=== PATIENT | male | born 1950 | race Caucasian/White ===

== ENCOUNTER 2019-02-03 07:23 | Day surgery (SDC) | payer MEDICARE ==
[~2019-02-03 07:23] MED LIST: Buffered Lidocaine 1% SYRIN* 1 ML/SYRINGE INTRADERM ONE
[2019-02-03] MEDS ORDERED: Midazolam* 1 MG/ML 2 ML VIAL (2 MG) ONE (09:11)
[2019-02-03 10:24] VITALS: BP 116/72
--- NOTE | 2019-02-03 12:05 | OP ---
DATE OF OPERATION: 02/03/19 [facility] DATE OF : 48 SURGEON: Kenton Lopez MD PREOPERATIVE DIAGNOSIS: Cataract, left eye. POSTOPERATIVE DIAGNOSIS: Cataract, left eye. OPERATIVE PROCEDURE: Extracapsular cataract extraction with intraocular lens implant, left eye. DESCRIPTION OF PROCEDURE: The patient was brought to the operating room after being given 1/2% Alcaine with epinephrine drops in the preoperative area. The eye was prepped and draped in the usual sterile fashion. Sterile drape and eyelid speculum were placed. Again, topical 1/2% Alcaine with epinephrine was given. A paracentesis incision was made at the 3 o'clock position with the No.75 blade. Clear cornea incision 2.2 x 2.2-mm was created at the 6 o'clock position starting at the anterior limbus using the 2.2-mm keratome. The anterior chamber was irrigated with 0.4 mL of 1% non-preservative intracameral lidocaine and filled with DisCoVisc. A capsulorrhexis was completed using the cystotome and the Utrata forceps. Hydrodissection was performed with balanced salt solution. The lens nucleus was removed with the Phacoemulsification handpiece without incident. Cortex was removed with the irrigation-aspiration handpiece. The capsular bag was re-inflated using DisCoVisc and an SN60WF 21 implant was inserted with the shooter. The irrigation-aspiration handpiece was used to remove all residual DisCoVisc. The eye was refilled with balanced salt solution and the wound checked and found to be watertight. Topical Maxitrol drops were given. [id number]/[facility] #: [id number] [facility]
[2019-02-03] MEDS ORDERED: Lidocaine 1% MPF ** 5 ML VIAL ONE (13:47)
[2019-02-03] MEDS ORDERED: Povidone Iodine 5% OPTH* 30 ML BTL ONE (13:47)
[2019-02-03] MEDS ORDERED: Ketorolac 0.5% OPHTH (NF) 0.5 % 5 ML BTL ONE (13:47)
[2019-02-03] MEDS ORDERED: Lidocaine 2% w/ EPI 1:200,000* 20 ML SDV VIAL ONE (13:47)
[2019-02-03] MEDS ORDERED: Neomycin/Polymy/Dex OPTH.SUSP* MAXITROL 0.1% 5 ML ONE (13:47)
[2019-02-03] MEDS ORDERED: Cyclopentolate 1% OPTH.SOL* 2 ML BTL ONE (13:47)
[2019-02-03] MEDS ORDERED: Proparacaine 0.5% OPHTH.SOL* 15 ML BTL ONE (13:47)
[2019-02-03] MEDS ORDERED: acetaZOLAMIDE TAB* 250 MG ONE (13:47)
[2019-02-03] MEDS ORDERED: Phenylephrine OPHTH SOL 2.5%* 2 ML ONE (13:47)
== END 2019-02-03 09:58 | disposition home or self-care (01) ==
LOC: OREAST 07:23
PROVIDERS: ATTEND Specialist
DX: H25.812 Combined forms of age-related cataract, left eye (principal); E11.9 Type 2 diabetes mellitus without complications; Z79.84 Long term (current) use of oral hypoglycemic drugs; Z79.4 Long term (current) use of insulin; N18.3 Chronic kidney disease, stage 3 (moderate); K21.9 Gastro-esophageal reflux disease without esophagitis; J44.9 Chronic obstructive pulmonary disease, unspecified; M19.90 Unspecified osteoarthritis, unspecified site; F17.210 Nicotine dependence, cigarettes, uncomplicated
CPT/HCPCS: A9270-GY; J2250; V2632

== ENCOUNTER 2019-02-10 06:54 | Day surgery (SDC) | payer MEDICARE ==
[2019-02-10] MEDS ORDERED: Midazolam* 1 MG/ML 2 ML VIAL (2 MG) ONE (08:26)
[2019-02-10 09:33] VITALS: BP 106/50
--- NOTE | 2019-02-10 11:16 | OP ---
OPERATIVE NOTE: DATE OF OPERATION: 02/10/19 DATE OF : 48 SURGEON: Kenton Lopez M.D. PREOPERATIVE DIAGNOSIS: Cataract, right eye. POSTOPERATIVE DIAGNOSIS: Cataract, right eye. OPERATIVE PROCEDURE: Extracapsular cataract extraction with intraocular lens implant right eye. PROCEDURE: The patient was brought to the operating room after being given 1/2% Alcaine with epineph rine drops in the preoperative area. The eye was prepped and draped in the usual sterile fashion. S terile drape and eyelid speculum were placed. Again, topical 1/2% Alcaine with epinephrine was given . A paracentesis incision was made at the 9 o'clock position with the No. 75 blade. Clear cornea in cision 2.2 x 2.2-mm was created at the 12 o'clock position starting at the anterior limbus using the 2.2-mm keratome. The anterior chamber was irrigated with 0.4 mL of 1% non-preservative intracameral lidocaine and filled with DisCoVisc. A capsulorrhexis was completed using the cystotome and the Utra ta forceps. Hydrodissection was performed with balanced salt solution. The lens nucleus was removed with the Phacoemulsification handpiece without incident. Cortex was removed with the irrigation-aspi ration handpiece. The capsular bag was re-inflated using DisCoVisc and an SN60WF 20.5 Implant was in serted with the shooter. The pupil was very small, so a Malyugin ring was used to dilate the pupil p rior to capsulorrhexis, removed after insertion of the lens. Irrigation-aspiration handpiece was use d to remove all residual DisCoVisc. The eye was refilled with balanced salt solution and the wound c hecked and found to be watertight. Topical Maxitrol drops were given. INDICATION FOR COMPLEX CATARACT SURGERY: Pupil abnormalities requiring pupil dilation device. [id number]/[facility] #: [id number]
[2019-02-10] MEDS ORDERED: Lidocaine 1% MPF ** 5 ML VIAL ONE (14:51)
[2019-02-10] MEDS ORDERED: acetaZOLAMIDE TAB* 250 MG ONE (14:51)
[2019-02-10] MEDS ORDERED: Ketorolac 0.5% OPHTH (NF) 0.5 % 5 ML BTL ONE (14:51)
[2019-02-10] MEDS ORDERED: Povidone Iodine 5% OPTH* 30 ML BTL ONE (14:51)
[2019-02-10] MEDS ORDERED: Cyclopentolate 1% OPTH.SOL* 2 ML BTL ONE (14:51)
[2019-02-10] MEDS ORDERED: Lidocaine 2% w/ EPI 1:200,000* 20 ML SDV VIAL ONE (14:51)
[2019-02-10] MEDS ORDERED: Proparacaine 0.5% OPHTH.SOL* 15 ML BTL ONE (14:51)
[2019-02-10] MEDS ORDERED: Neomycin/Polymy/Dex OPTH.SUSP* MAXITROL 0.1% 5 ML ONE (14:51)
[2019-02-10] MEDS ORDERED: Phenylephrine OPHTH SOL 2.5%* 2 ML ONE (14:51)
== END 2019-02-10 09:23 | disposition home or self-care (01) ==
LOC: OREAST 06:54
PROVIDERS: ATTEND Specialist
DX: H25.811 Combined forms of age-related cataract, right eye (principal); E11.22 Type 2 diabetes mellitus with diabetic chronic kidney disease; N18.3 Chronic kidney disease, stage 3 (moderate); F17.290 Nicotine dependence, other tobacco product, uncomplicated; J44.9 Chronic obstructive pulmonary disease, unspecified; K21.9 Gastro-esophageal reflux disease without esophagitis; Z79.4 Long term (current) use of insulin; Z79.84 Long term (current) use of oral hypoglycemic drugs; Z96.1 Presence of intraocular lens
CPT/HCPCS: A9270-GY; J2250; V2632

== ENCOUNTER 2023-06-23 15:08 | Inpatient (IN) ==
[2023-06-23 16:22] LABS: ABS Basophils 0.1 10^3/uL (0.0-0.1); ABS Eosinophils 0.2 10^3/uL (0.0-0.5); ABS Lymphocytes 1.4 10^3/uL (1.0-4.8); ABS Monocytes 0.8 10^3/uL (0.0-1.1); ABS Neutrophils 5.3 10^3/uL (1.5-7.6); ABS Nucleated RBC 0.01 10^3/ul; Eosinophil % 2.9 %; Hematocrit 19.1 % (38-53); Hemoglobin 6.2 g/dL (13.2-16.3); Lymphocyte % 18.1 %; Mean Corpuscular Hgb Conc 32.4 g/dL (31-36); Mean Corpuscular Volume 89.4 fL (80-97); Mean Platelet Volume 7.3 fL (7.5-11.2); Nucleated Red Blood Cells % 0.1 %/100WBC (0.0-0.8); Platelet Count 236 10^3/uL (150-450); Red Blood Count 2.14 10^6/uL (4.06-5.63); Red Cell Distribution Width 16.2 % (12-17); White Blood Count 7.8 10^3/uL (3.6-10.2)
[2023-06-23 16:34] LABS: High Sens Troponin Baseline 79 pg/mL (<20)
[2023-06-23 16:50] LABS: ALT 6 U/L (7-52); AST 9 U/L (13-39); Albumin/Globulin Ratio 1.7 (1-3); Alcohol, S < 13 mg/dL (<13); Alkaline Phosphatase 36 U/L (35-149); Anion Gap 6 mmol/L (2-16); Blood Urea Nitrogen 55 mg/dL (6-24); C Reactive Protein < 1.00 mg/L (<8.01); CO2 Carbon Dioxide 21 mmol/L (22-32); Calcium 8.8 mg/dL (8.6-10.3); Chloride 107 mmol/L (101-111); Creatinine, Serum 3.03 mg/dL (0.67-1.17); Globulin 2.3 g/dL (2-4); Glucose 126 mg/dL (70-100); Magnesium 1.9 mg/dL (1.9-2.7); Potassium 5.4 mmol/L (3.5-5.0); Sodium 134 mmol/L (135-145); Total Bilirubin 0.3 mg/dL (0.2-1.0); Total Protein 6.3 g/dL (6.4-8.9); eGFR CKD-EPI 20.9 (>60)
[2023-06-23 17:36] LABS: High Sensitivity Troponin 1 Hr 83 pg/mL (<20)
[2023-06-23] MEDS ORDERED: Nicotine Lozenge mini 2 MG LOZNG.MINI MT PRN (19:52)
[2023-06-23] MEDS ORDERED: Dextrose 50% Syringe 50 ml 25 GM/50 ML SYRINGE IV PUSH PRN (19:58)
[2023-06-23 20:22] LABS: Urine Appearance Clear; Urine Bilirubin Negative (Negative); Urine Blood Negative (Negative); Urine Color Light-Yellow; Urine Glucose Trace (Negative); Urine Ketones Negative (Negative); Urine Nitrite Negative (Negative); Urine Protein Negative (Negative); Urine Specific Gravity 1.013 (1.002-1.030); Urine Urobilinogen Negative (Negative); Urine pH 5.5 (5.0-8.0)
[2023-06-23 21:14] LABS: % Iron Saturation 4 % (15-55); .Transferrin 341 mg/dL (203-362); Iron < 20 ug/dL (50-212); Phosphorus 4.4 mg/dL (2.5-5.0); Total Iron Binding Capacity 477 mcg/dL (250-450); Unsaturated Iron Binding 457 ug/dL
[2023-06-23 21:34] LABS: Ferritin 8.1 ng/mL (24-336)
[2023-06-24] MEDS ORDERED: Albuterol 2.5mg/3 ml (0.083%) NEB.SOLN INH PRN (00:16)
[2023-06-24] MEDS: Albuterol 2.5mg/3 ml (0.083%) NEB.SOLN INH ONE ×3 (00:17→06:02)
[2023-06-24 00:25] LABS: Folate 10.26 ng/mL (5.90-24.80)
[2023-06-24 00:26] LABS: Vitamin B12 206 pg/mL (180-914)
[2023-06-24 02:37] LABS: Hematocrit 23.5 % (38-53); Hemoglobin 7.9 g/dL (13.2-16.3); Mean Corpuscular Hemoglobin 29.1 pg (27-33); Mean Corpuscular Hgb Conc 33.4 g/dL (31-36); Platelet Count 186 10^3/uL (150-450); Red Blood Count 2.71 10^6/uL (4.06-5.63); Red Cell Distribution Width 15.8 % (12-17); White Blood Count 8.3 10^3/uL (3.6-10.2)
[2023-06-24 02:44] LABS: INR 1.05 (0.83-1.13)
[2023-06-24 03:11] LABS: Calcium 8.6 mg/dL (8.6-10.3); Creatinine, Serum 2.87 mg/dL (0.67-1.17); Potassium 5.1 mmol/L (3.5-5.0); eGFR CKD-EPI 22.3 (>60)
[2023-06-24 06:58] LABS: ABS Basophils 0.1 10^3/uL (0.0-0.1); ABS Eosinophils 0.2 10^3/uL (0.0-0.5); ABS Lymphocytes 1.4 10^3/uL (1.0-4.8); ABS Monocytes 0.9 10^3/uL (0.0-1.1); ABS Neutrophils 4.7 10^3/uL (1.5-7.6); ABS Nucleated RBC 0.01 10^3/ul; Hematocrit 24.1 % (38-53); Hemoglobin 8.1 g/dL (13.2-16.3); Lymphocyte % 19.1 %; Mean Corpuscular Hemoglobin 29.5 pg (27-33); Mean Corpuscular Hgb Conc 33.8 g/dL (31-36); Mean Corpuscular Volume 87.3 fL (80-97); Nucleated Red Blood Cells % 0.2 %/100WBC (0.0-0.8); Platelet Count 197 10^3/uL (150-450); Red Blood Count 2.76 10^6/uL (4.06-5.63); Red Cell Distribution Width 15.8 % (12-17); White Blood Count 7.5 10^3/uL (3.6-10.2)
[2023-06-24] MEDS ORDERED: Albuterol 2.5mg/3 ml (0.083%) NEB.SOLN INH ONE (07:00)
[2023-06-24 07:16] LABS: Calcium 8.6 mg/dL (8.6-10.3); Creatinine, Serum 2.8 mg/dL (0.67-1.17); Potassium 5.4 mmol/L (3.5-5.0)
[2023-06-24] MEDS ORDERED: Calcium Gluconate 1 GM/10 ML VIAL (in Pyxis) IV PUSH ONE (07:42)
[2023-06-24] MEDS: Nicotine PATCH 14 MG/24 HR PATCH TRANSDERM SCH (07:47)
[2023-06-24] MEDS: Nicotine GUM 2MG FRUIT FLAVOR PO PRN (07:47)
[2023-06-24] MEDS ORDERED: Simvastatin 20 mg TAB (NF) PO SCH (09:00)
[2023-06-24] MEDS: SODIUM ZIRCONIUM CYCLOSILICATE 10 GM PACKET PO SCH (09:25)
[2023-06-24] MEDS: CALCIUM GLUCONATE 1GM/50ML NS BAG IV ONE (10:49)
[2023-06-24] MEDS: Ferric Gluconate IV 250 MG in NS 0.9% 250 ml 200 ML IVPB ONE (12:03)
[2023-06-24 21:02] LABS: Creatinine, Serum 2.63 mg/dL (0.67-1.17); Potassium 5.6 mmol/L (3.5-5.0); eGFR CKD-EPI 24.7 (>60)
[2023-06-25 05:42] LABS: Hematocrit 26.7 % (38-53); Hemoglobin 8.9 g/dL (13.2-16.3); Mean Corpuscular Hemoglobin 29.1 pg (27-33); Mean Corpuscular Hgb Conc 33.4 g/dL (31-36); Mean Corpuscular Volume 87.3 fL (80-97); Mean Platelet Volume 7.3 fL (7.5-11.2); Platelet Count 233 10^3/uL (150-450); Red Blood Count 3.06 10^6/uL (4.06-5.63); Red Cell Distribution Width 15.4 % (12-17); White Blood Count 9.1 10^3/uL (3.6-10.2)
[2023-06-25 06:00] LABS: Calcium 9.2 mg/dL (8.6-10.3); Creatinine, Serum 2.64 mg/dL (0.67-1.17); Magnesium 1.9 mg/dL (1.9-2.7); Potassium 5.1 mmol/L (3.5-5.0); eGFR CKD-EPI 24.6 (>60)
[2023-06-25] MEDS: Sodium Polystyrene ORAL.SUSP 15 GM/60 ML BTL PO ONE (06:23)
[2023-06-25] MEDS: Ferric Gluconate IV 250 MG in NS 0.9% 250 ml 200 ML IVPB SCH (09:34)
[2023-06-25] MEDS: Insulin GLARGINE 100 un/ml 10 ml VIAL SUBCUT SCH (12:00)
[2023-06-25] MEDS ORDERED: Midazolam 10 mg/10 ml VIAL 1 mg/ml 10 ml VIAL (10 mg) ONE (14:17)
[2023-06-25] MEDS ORDERED: fentaNYL 100 mcg/2 ml 50 MCG/ML VIAL ONE (14:17)
[2023-06-26 05:58] LABS: Hematocrit 27.1 % (38-53); Mean Corpuscular Hgb Conc 33.1 g/dL (31-36); Mean Corpuscular Volume 87.7 fL (80-97); Mean Platelet Volume 7.2 fL (7.5-11.2); Platelet Count 232 10^3/uL (150-450); Red Blood Count 3.09 10^6/uL (4.06-5.63); Red Cell Distribution Width 15.7 % (12-17)
[2023-06-26 06:18] LABS: Albumin/Globulin Ratio 1.7 (1-3); Calcium 9.1 mg/dL (8.6-10.3); Creatinine, Serum 2.63 mg/dL (0.67-1.17); Globulin 2.3 g/dL (2-4); Potassium 4.4 mmol/L (3.5-5.0); Total Bilirubin 0.4 mg/dL (0.2-1.0); Total Protein 6.3 g/dL (6.4-8.9); eGFR CKD-EPI 24.7 (>60)
[2023-06-26] MEDS: PEG 3000 GI LAVAGE 1 GALLON PO ONE (10:10)
[2023-06-26 17:37] VITALS: BP 98/51
== END 2023-06-26 18:30 | disposition home or self-care (01) | DRG 812 ==
LOC: EDHOLD 15:08 → ED 15:08 → SUATTDRO 18:48 → MEDTELE 19:42 → MED 06-26 17:10
PROVIDERS: ADMIT Internal Medicine; ATTEND Student in an Organized Health Care Education/Training Program

== ENCOUNTER 2023-12-23 04:17 | Inpatient (IN) ==
[2023-12-23] MEDS ORDERED: Dextrose 50% Syringe 50 ml 25 GM/50 ML SYRINGE IV PUSH PRN (06:22)
[2023-12-23 06:33] LABS: ABS Basophils 0.1 10^3/uL (0.0-0.1); ABS Eosinophils 0.4 10^3/uL (0.0-0.5); ABS Lymphocytes 1.7 10^3/uL (1.0-4.8); ABS Monocytes 1.1 10^3/uL (0.0-1.1); ABS Neutrophils 8.5 10^3/uL (1.5-7.6); Eosinophil % 3.8 %; Hematocrit 26.5 % (38-53); Hemoglobin 9.2 g/dL (13.2-16.3); Lymphocyte % 14.2 %; Mean Corpuscular Hemoglobin 34.9 pg (27-33); Mean Corpuscular Hgb Conc 34.6 g/dL (31-36); Mean Corpuscular Volume 100.8 fL (80-97); Mean Platelet Volume 7.2 fL (7.5-11.2); Platelet Count 260 10^3/uL (150-450); Red Blood Count 2.63 10^6/uL (4.06-5.63); Red Cell Distribution Width 13.7 % (12-17); White Blood Count 11.7 10^3/uL (3.6-10.2)
[2023-12-23] MEDS ORDERED: NS 0.9% 1000 ml BAG 200 ML IV PRN (07:40)
[2023-12-23] MEDS ORDERED: NS 0.9% 1000 ml BAG 100 ML IV PRN (07:40)
[2023-12-23 08:00] LABS: ALT 8 U/L (7-52); AST 9 U/L (13-39); Albumin 4.2 g/dL (3.2-5.2); Albumin/Globulin Ratio 1.4 (1-3); Alkaline Phosphatase 117 U/L (35-149); Anion Gap 17 mmol/L (2-16); Blood Urea Nitrogen 120 mg/dL (6-24); CO2 Carbon Dioxide 21 mmol/L (22-32); Calcium 10.2 mg/dL (8.6-10.3); Chloride 99 mmol/L (101-111); Creatinine, Serum 9.62 mg/dL (0.67-1.17); Globulin 2.9 g/dL (2-4); Glucose 136 mg/dL (70-100); Magnesium 2.6 mg/dL (1.9-2.7); Phosphorus 5.9 mg/dL (2.5-5.0); Potassium 4.4 mmol/L (3.5-5.0); Sodium 137 mmol/L (135-145); Total Bilirubin 0.4 mg/dL (0.2-1.0); Total Protein 7.1 g/dL (6.4-8.9); eGFR CKD-EPI 5.2 (>60)
[2023-12-23] MEDS: Insulin ISOPH/REG 70/30 SUBCUT SCH (08:07)
[2023-12-23 08:17] LABS: Folate 10.96 ng/mL (5.90-24.80)
[2023-12-23 08:35] LABS: Vitamin B12 > 1450 pg/mL (180-914)
[2023-12-23] MEDS ORDERED: Clindamycin 600 MG/NS BAG(*) 600 MG/50 ML BAG ONE (11:21)
[2023-12-23] MEDS ORDERED: Heparin 2 UNITS/ML IVPREMIX 1,000 UNIT/500 ML BAG IV ONE (12:08)
[2023-12-23] MEDS ORDERED: Lidocaine 1% VIAL 10 MG/ML 30 ML VIAL ONE (12:08)
[2023-12-23 12:09] LABS: Hepatitis B Surface Antigen Nonreactive (Nonreactive)
[2023-12-23] MEDS ORDERED: Midazolam 5 mg/5 ml VIAL 1 mg/ml 5 ml VIAL (5 mg) ONE (12:17)
[2023-12-23] MEDS ORDERED: fentaNYL 100 mcg/2 ml 50 MCG/ML VIAL ONE ×2 (12:17→12:43)
[2023-12-23 13:49] LABS: Hepatitis B Surface Ab Not Immune (Immune)
[2023-12-23] MEDS: Heparin 1,000 UNIT/ML 10 ml (10,000 UNITS) CATHLAB/DIALYSIS DIALYSIS PRN (14:10)
[2023-12-23 16:41] LABS: Rheumatoid Factor < 10 IU/mL (<15)
[2023-12-23 17:26] LABS: C Reactive Protein 10.48 mg/L (<8.01)
[2023-12-23 17:39] LABS: Hepatitis C Antibody Negative (Negative)
[2023-12-23] MEDS: Clindamycin 600 MG/D5W BAG 600 MG/50 ML BAG IV ONE (19:30)
[2023-12-23 22:01] LABS: HIV 4th Generation Nonreactive (Nonreactive)
[2023-12-23] MEDS: Heparin 5000 UNITS/ML 1 mL VIAL SUBCUT SCH (22:06)
[2023-12-23 22:47] LABS: Hepatitis B Surface Antigen Nonreactive (Nonreactive)
[2023-12-24] MEDS: Nystatin TOP POWDER 15 GM BTL TOPICAL SCH (01:03)
[2023-12-24 06:25] LABS: ABS Basophils 0.1 10^3/uL (0.0-0.1); ABS Eosinophils 0.3 10^3/uL (0.0-0.5); ABS Lymphocytes 1.6 10^3/uL (1.0-4.8); ABS Monocytes 0.9 10^3/uL (0.0-1.1); ABS Neutrophils 6.7 10^3/uL (1.5-7.6); Hematocrit 25.9 % (38-53); Hemoglobin 8.9 g/dL (13.2-16.3); Lymphocyte % 16.4 %; Mean Corpuscular Hemoglobin 34.7 pg (27-33); Mean Corpuscular Hgb Conc 34.4 g/dL (31-36); Mean Corpuscular Volume 101.1 fL (80-97); Mean Platelet Volume 7.1 fL (7.5-11.2); Platelet Count 234 10^3/uL (150-450); Red Blood Count 2.56 10^6/uL (4.06-5.63); Red Cell Distribution Width 13.7 % (12-17); White Blood Count 9.5 10^3/uL (3.6-10.2)
[2023-12-24 06:44] LABS: Calcium 9.4 mg/dL (8.6-10.3); Creatinine, Serum 6.6 mg/dL (0.67-1.17); Magnesium 2.1 mg/dL (1.9-2.7); Phosphorus 4.2 mg/dL (2.5-5.0); Potassium 4.2 mmol/L (3.5-5.0); eGFR CKD-EPI 8.2 (>60)
[2023-12-24] MEDS: Albumin Human 25% 25 GM/100 ML BTL IV PRN (15:29)
[2023-12-24] MEDS: NS 0.9% 1000 ml BAG 1,000 ML IV SCH (18:43)
[2023-12-25 05:13] LABS: ABS Basophils 0.1 10^3/uL (0.0-0.1); ABS Eosinophils 0.3 10^3/uL (0.0-0.5); ABS Lymphocytes 1.7 10^3/uL (1.0-4.8); ABS Monocytes 1.1 10^3/uL (0.0-1.1); ABS Neutrophils 5.2 10^3/uL (1.5-7.6); Eosinophil % 3.6 %; Hematocrit 24.1 % (38-53); Hemoglobin 8.5 g/dL (13.2-16.3); Lymphocyte % 20.3 %; Mean Corpuscular Hemoglobin 35.5 pg (27-33); Mean Corpuscular Hgb Conc 35.4 g/dL (31-36); Mean Corpuscular Volume 100.5 fL (80-97); Platelet Count 205 10^3/uL (150-450); Red Cell Distribution Width 13.6 % (12-17); White Blood Count 8.3 10^3/uL (3.6-10.2)
[2023-12-25 05:44] LABS: Calcium 8.8 mg/dL (8.6-10.3); Creatinine, Serum 4.31 mg/dL (0.67-1.17); Potassium 3.7 mmol/L (3.5-5.0); eGFR CKD-EPI 13.7 (>60)
[2023-12-25 17:30] VITALS: BP 113/57
[2023-12-25 18:20] LABS: Kappa Free Light Chain 6.12 mg/dL; Lambda Free Light Chain, S 5.27 mg/dL
[2023-12-25 18:39] LABS: Complement C3 121 mg/dL (75 - 175)
[2023-12-25 19:05] LABS: Myeloperoxidase Antibody <0.2 U; Proteinase 3 <0.2 U
[2023-12-26 12:32] LABS: TB1 Ag minus Nil Result 0.01 IU/mL; TB2 Ag minus Nil Result 0.01 IU/mL
[2023-12-26 12:34] LABS: QuantiferonTb Gold Plus Result Negative (Negative)
[2023-12-29 15:16] LABS: PLA2R, Immunofluorescence, S Negative (Negative)
== END 2023-12-25 18:15 | disposition home or self-care (01) | DRG 674 ==
LOC: ED 04:17 → EDHOLD 04:17 → SUATTDRO 04:47 → MED 12:41
PROVIDERS: ADMIT Internal Medicine; ATTEND Hospitalist

== ENCOUNTER 2024-02-14 20:05 | Inpatient (IN) ==
[2024-02-14 21:37] LABS: ABS Basophils 0.1 10^3/uL (0.0-0.1); ABS Eosinophils 0.2 10^3/uL (0.0-0.5); ABS Lymphocytes 1.6 10^3/uL (1.0-4.8); ABS Monocytes 0.8 10^3/uL (0.0-1.1); ABS Neutrophils 8.1 10^3/uL (1.5-7.6); ABS Nucleated RBC 0.01 10^3/ul; Hemoglobin 10.7 g/dL (13.2-16.3); Lymphocyte % 14.6 %; Mean Corpuscular Hemoglobin 35.5 pg (27-33); Mean Corpuscular Hgb Conc 34.6 g/dL (31-36); Mean Corpuscular Volume 102.4 fL (80-97); Mean Platelet Volume 8.4 fL (7.5-11.2); Platelet Count 213 10^3/uL (150-450); Red Blood Count 3.02 10^6/uL (4.06-5.63); Red Cell Distribution Width 14.8 % (12-17); White Blood Count 10.8 10^3/uL (3.6-10.2)
[2024-02-14 21:49] LABS: INR 0.99 (0.85-1.14)
[2024-02-14 22:06] LABS: Albumin 4.5 g/dL (3.2-5.2); Albumin/Globulin Ratio 1.7 (1-3); Calcium 11.7 mg/dL (8.6-10.3); Creatinine, Serum 6.48 mg/dL (0.67-1.17); Globulin 2.6 g/dL (2-4); Magnesium 1.9 mg/dL (1.9-2.7); Phosphorus 6.1 mg/dL (2.5-5.0); Potassium 4.5 mmol/L (3.5-5.0); Total Bilirubin 0.4 mg/dL (0.2-1.0); Total Protein 7.1 g/dL (6.4-8.9); eGFR CKD-EPI 8.3 (>60)
[2024-02-14 22:36] LABS: Venous Bicarbonate HCO3 24.2 mmol/L (24-28)
[2024-02-14 23:06] LABS: High Sensitivity Troponin 1 Hr 54 pg/mL (<20)
[2024-02-15] MEDS: Ondansetron ODT 4 mg TAB 4 MG TAB SL ONE (00:02)
[2024-02-15] MEDS: Ondansetron 4 mg VIAL 2 MG/ML 2 ml VIAL IV ONE (00:02)
[2024-02-15] MEDS: Acetaminophen IV 1 GM/100ML 1,000 MG/100 ML BAG IV ONE (00:22)
[2024-02-15 04:07] LABS: Urine Appearance Clear; Urine Bilirubin Negative (Negative); Urine Blood Negative (Negative); Urine Color Colorless; Urine Glucose 2+ (>=150 mg/dL) (Negative); Urine Ketones Negative (Negative); Urine Nitrite Negative (Negative); Urine Protein 1+ (>=30 mg/dL) (Negative); Urine Specific Gravity 1.013 (1.002-1.030); Urine Urobilinogen Negative (Negative)
[2024-02-15 04:08] LABS: Urine Bacteria Absent /HPF (Absent); Urine Red Blood Cell Trace(0-2/hpf) /HPF (0-Trace); Urine White Blood Cell Trace(0-5/hpf) /HPF (0-Trace)
[2024-02-15] MEDS ORDERED: Dextrose 50% Syringe 50 ml 25 GM/50 ML SYRINGE IV PUSH PRN (05:43)
[2024-02-15 06:08] LABS: ABS Basophils 0.1 10^3/uL (0.0-0.1); ABS Eosinophils 0.3 10^3/uL (0.0-0.5); ABS Lymphocytes 1.3 10^3/uL (1.0-4.8); ABS Monocytes 0.9 10^3/uL (0.0-1.1); ABS Neutrophils 7.2 10^3/uL (1.5-7.6); Eosinophil % 2.8 %; Hematocrit 28.6 % (38-53); Hemoglobin 9.8 g/dL (13.2-16.3); Lymphocyte % 13.4 %; Mean Corpuscular Hemoglobin 34.8 pg (27-33); Mean Corpuscular Hgb Conc 34.1 g/dL (31-36); Mean Platelet Volume 8.2 fL (7.5-11.2); Platelet Count 189 10^3/uL (150-450); Red Blood Count 2.81 10^6/uL (4.06-5.63); White Blood Count 9.8 10^3/uL (3.6-10.2)
[2024-02-15 06:58] LABS: Calcium 11.2 mg/dL (8.6-10.3); Creatinine, Serum 6.19 mg/dL (0.67-1.17); Magnesium 1.9 mg/dL (1.9-2.7); Potassium 4.3 mmol/L (3.5-5.0); eGFR CKD-EPI 8.8 (>60)
[2024-02-15] MEDS: Insulin GLARGINE 100 un/ml 10 ml VIAL SUBCUT SCH (09:04)
[2024-02-15] MEDS ORDERED: NS 0.9% 1000 ml BAG 200 ML IV PRN (13:26)
[2024-02-15] MEDS ORDERED: NS 0.9% 1000 ml BAG 100 ML IV PRN (13:26)
[2024-02-15 14:34] LABS: Hepatitis B Surface Ab Not Immune (Immune)
[2024-02-16 02:54] LABS: Hepatitis B Surface Antigen Nonreactive (Nonreactive)
[2024-02-16 06:23] LABS: ABS Basophils 0.1 10^3/uL (0.0-0.1); ABS Eosinophils 0.4 10^3/uL (0.0-0.5); ABS Lymphocytes 1.3 10^3/uL (1.0-4.8); ABS Neutrophils 6.6 10^3/uL (1.5-7.6); Eosinophil % 3.9 %; Hematocrit 28.8 % (38-53); Hemoglobin 9.8 g/dL (13.2-16.3); Lymphocyte % 14.2 %; Mean Corpuscular Hemoglobin 35.2 pg (27-33); Mean Corpuscular Hgb Conc 34.1 g/dL (31-36); Mean Corpuscular Volume 103.1 fL (80-97); Mean Platelet Volume 8.4 fL (7.5-11.2); Platelet Count 201 10^3/uL (150-450); Red Cell Distribution Width 14.8 % (12-17); White Blood Count 9.3 10^3/uL (3.6-10.2)
[2024-02-16 06:51] LABS: Calcium 10.6 mg/dL (8.6-10.3); Creatinine, Serum 6.53 mg/dL (0.67-1.17); Magnesium 1.9 mg/dL (1.9-2.7); Phosphorus 6.1 mg/dL (2.5-5.0); Potassium 4.6 mmol/L (3.5-5.0); eGFR CKD-EPI 8.3 (>60)
[2024-02-16] MEDS: Clindamycin 600 MG/D5W BAG 600 MG/50 ML BAG IV ONE (11:12)
[2024-02-16] MEDS ORDERED: Heparin 1,000 UNIT/ML 10 ml (10,000 UNITS) CATHLAB/DIALYSIS ONE (12:36)
[2024-02-16] MEDS: Heparin 1,000 UNIT/ML 10 ml (10,000 UNITS) CATHLAB/DIALYSIS DIALYSIS PRN (14:02)
[2024-02-16] MEDS: fentaNYL 100 mcg/2 ml 50 MCG/ML VIAL ONE (20:25)
[2024-02-16] MEDS: Heparin 2 UNITS/ML 1000 mls 1,000 ML IV ONE (20:25)
[2024-02-16] MEDS: Lidocaine 1% MPF 5 ML VIAL ONE ×2 (20:25)
[2024-02-16] MEDS: Midazolam 2 mg/2 ml VIAL 1 mg/ml 2 ml VIAL (2 mg) ONE ×2 (20:25)
[2024-02-17 06:02] LABS: Hematocrit 28.7 % (38-53); Mean Corpuscular Hemoglobin 35.2 pg (27-33); Mean Corpuscular Hgb Conc 34.8 g/dL (31-36); Mean Corpuscular Volume 101.3 fL (80-97); Mean Platelet Volume 8.3 fL (7.5-11.2); Platelet Count 194 10^3/uL (150-450); Red Blood Count 2.83 10^6/uL (4.06-5.63); Red Cell Distribution Width 15.2 % (12-17); White Blood Count 9.9 10^3/uL (3.6-10.2)
[2024-02-17 06:19] LABS: Calcium 10.1 mg/dL (8.6-10.3); Creatinine, Serum 4.78 mg/dL (0.67-1.17); Magnesium 1.8 mg/dL (1.9-2.7); Potassium 4.1 mmol/L (3.5-5.0)
[2024-02-17] MEDS: Albumin Human 25% 25 GM/100 ML BTL IV PRN (08:32)
[2024-02-17] MEDS: Magnesium Sulfate 2 gm BAG 2 GM/50 ML BAG IVPB ONE (11:33)
[2024-02-18 13:34] VITALS: BP 90/55
== END 2024-02-18 15:22 | disposition home or self-care (01) | DRG 674 ==
LOC: EDHOLD 20:05 → ED 20:05 → SUATTDRO 02-15 00:52 → MEDTELE 02-15 13:01
PROVIDERS: ADMIT Internal Medicine; ATTEND Internal Medicine